=== PATIENT | female | born 1970 | race Caucasian/White ===

== ENCOUNTER 2021-10-25 19:00 | Outpatient (CLI) | payer BC, SELFPAY ==
--- NOTE | 2021-11-04 09:00 | W.PM.SLEEP ---
Sleep Study Details Details Interpreting Provider: Artur Naranjo MD Date of Sleep Study: 10/25/21 Sleep Study Details: STUDY TYPE:? Home sleep study ? BMI:? Not recorded ORDERING PROVIDER:? Marco Antonio INDICATION:? Concerns about sleep apnea ? SLEEP SUMMARY:? Monitor time 485.5 minutes RESPIRATORY SUMMARY:? AHI is 10.9. Supine AHI 15.1 Right lateral AHI 2.8 Low oxygen was 84 3.4% of the study oxygenation was less than 90% Snore summary 41.2% CARDIAC:? 52-105, mean 72.1 bpm IMPRESSION:? Mild obstructive sleep apnea all in the supine position. RECOMMENDATION: Treatment options include AutoSet CPAP at a pressure of 4-17, positional therapy, dental appliance, weight loss and/or airway expansion surgery.
== END 2021-10-25 19:01 | disposition home or self-care (01) ==
LOC: SLEEP 10-31 13:02
PROVIDERS: PCP Physician Assistant Medical; Visit Provider Otolaryngology
DX: G47.33 Obstructive sleep apnea (adult) (pediatric) (principal)
CPT/HCPCS: 95806

== ENCOUNTER 2021-11-10 10:46 | Outpatient (CLI) | payer BC, SELFPAY ==
--- NOTE | 2021-11-10 11:00 | CT_ITS ---
Final Report Patient: DAKOTA MAST Facility:?[facility] Patient ID:?[id number] Site Patient ID:?[id number]. Site :?[id number] Study:?CT Sinus WITHOUT-11/10/2021 11:11:34 AM Ordering Physician:?Alexa Siddiqui Final Report: INDICATION: Sinusitis. TECHNIQUE: CT sinus without contrast. COMPARISON: None. FINDINGS: Paranasal sinuses: Minimal ethmoid sinus mucosal thickening. Small mucous retention cysts/polyps in bilateral maxillary sinuses. Otherwise the paranasal sinuses are clear. No air-fluid levels. The ostiomeatal units are patent. The fovea ethmoidalis and orbital bueno are intact. The nasal septum is midline and intact. Mild degenerative change in the bilateral temporomandibular joints. Mild asymmetric hypertrophy of the right nasal turbinates compared to the left. Amy bullosa with pneumatization of the left middle turbinate. Orbits and globes: Unremarkable. Visualized intracranial contents: Unremarkable. Incomplete fusion of the posterior ring of C1. Soft tissues: Unremarkable. IMPRESSION: Minimal ethmoid sinus mucosal thickening. No air-fluid levels to suggest acute sinusitis. Small bilateral maxillary sinus polyps or mucous retention cysts. Mild asymmetric hypertrophy of the right nasal turbinates compared to the left. Pneumatization of the left middle turbinate. Please note that all CT scans at this facility use dose modulation, iterative reconstruction, and/or weight-based dosing when appropriate to reduce radiation dose to as low as reasonably achievable. Dictated by Henrique Canales MD @ 11/10/2021 11:26:19 AM (Electronic Signature)
== END 2021-11-10 10:47 | disposition home or self-care (01) ==
LOC: CT 10:46
PROVIDERS: PCP Physician Assistant Medical; Visit Provider Otolaryngology
DX: J32.9 Chronic sinusitis, unspecified (principal)
CPT/HCPCS: 70486

== ENCOUNTER 2022-04-14 14:40 | Outpatient (CLI) | payer BC, SELFPAY ==
--- NOTE | 2022-04-14 15:00 | CRLHL7_ITS ---
For Patients: As a result of the Century Cures Act, medical imaging exams and procedure reports are released immediately into your electronic medical record. You may view this report before your referring provider. If you have questions, please contact your health care provider. INDICATION: LEFT LOWER QUADRANT ABDOMINAL PAIN COMPARISON: none TECHNIQUE: 2D mobley scale and color Doppler images were acquired of the pelvis using a transabdominal and transvaginal approach. FINDINGS: The uterus is absent. The right ovary measures 2.7 x 1.9 x 1.3 cm in size and the left ovary is not visualized. The right ovary demonstrates normal arterial and venous blood flow on color Doppler analysis. There are no suspicious fluid collections within the cul-de-sac. IMPRESSION: Nonvisualization of the left ovary. No adnexal mass or free fluid. Dictated by Michele Lomas MD @ 04/15/2022 12:53:27 PM (Electronically Signed)
--- NOTE | 2022-04-14 16:00 | CRLHL7_ITS ---
For Patients: As a result of the Cures Act, medical imaging exams and procedure reports are released immediately into your electronic medical record. You may view this report before your referring provider. If you have questions, please contact your health care provider. INDICATION: Evaluate for stenosis TECHNIQUE: The carotid circulations and the vertebral arteries in the neck were examined with mobley-scale ultrasound, color-flow and Doppler spectral analysis. Degrees of stenosis were determined using SRU 2002 Consensus Panel Criteria. COMPARISON: None FINDINGS: Multiple sonographic images with grayscale, color Doppler and spectral Doppler analysis were obtained demonstrate visualized atherosclerotic plaque in the carotid arteries bilaterally. Velocities are within normal limits bilaterally. The right ICA/CCA ratio is 0.9 and the left ICA/CCA ratio is 0.0. Spectral waveforms are normal. Both vertebral arteries are antegrade. IMPRESSION: Estimated stenosis in the right internal carotid artery is extent% by NASCET criteria. Estimated stenosis in the left internal carotid artery is less than 5th % by NASCET criteria. Dictated by Michele Wan MD @ 04/14/2022 7:09:29 PM ----- ADDENDUM ----- The impression should state: The right and left internal carotid arteries demonstrate 0-50 percent stenosis. Dictated by Michele Wan MD @ Apr 15 2022 12:12PM ----- ADDENDUM ----- Addendum: Impression should state estimated stenosis in the internal carotid arteries bilaterally is less than 50 percent. In the findings, the left ICA/CCA ratio is 1.0. Dictated by Michele Lomas MD @ Jan 14 2023 1:47PM (Electronically Signed)
== END 2022-04-14 14:41 | disposition home or self-care (01) ==
LOC: US 14:40
PROVIDERS: PCP Physician Assistant Medical; Visit Provider Physician Assistant Medical
DX: R10.32 Left lower quadrant pain (principal); G44.84 Primary exertional headache
CPT/HCPCS: 76830; 76856; 93880; 93976

== ENCOUNTER 2022-04-17 10:30 | Day surgery (SDC) | payer BC, SELFPAY ==
[2022-04-17] VITALS (12 sets, daily range): BP systolic 103–136; BP diastolic 66–84; PULSE 58–86; RESP 12–20; TEMP 36.6–37.2; O2SAT 93–97; BMI 38.5
[2022-04-17] MEDS: SODIUM CHLORIDE 0.9 % (FLUSH) 10 ML SYRINGE IVF (11:00)
[2022-04-17] MEDS: LACTATED RINGERS 1000 ML 1,000 ML 100 ML IV (11:00)
--- NOTE | 2022-04-17 11:08 | SUR.PREOP ---
Visualized patients home covid test, results negative.
--- NOTE | 2022-04-17 11:14 | W.ANESCHARGE ---
Anesthesia Charges Start Date/Time Anesthesia Start Date: 04/17/22 Anesthesia Start Time: 11:58 Stop Date/Time Anesthesia Stop Date: 04/17/22 Anesthesia Stop Time: 12:35 Summary Emergency: No
[2022-04-17] MEDS: OXYMETAZOLINE 0.05% NASAL SPRAY 2 SPRAY NOSTRIL-B (11:26)
[2022-04-17] MEDS: COCAINE HCL 4 % 4 ML SOLUTION NOSTRIL-B (12:12)
[2022-04-17] MEDS: BUPIVACAINE 0.5 %/EPI 1:200K 30 ML INJECTION (12:12)
[2022-04-17] MEDS: AYR SALINE NASAL GEL 1 APPLIC NOSTRIL-B (12:21)
[2022-04-17] MEDS: MUPIROCIN 1 GM PACKET 1 APPLIC TOPICAL (12:21)
--- NOTE | 2022-04-17 12:24 | P.ENTPROC_ITS ---
Procedure Note Date of procedure: 04/17/22 Procedure: Preoperative diagnosis nasal septal deviation, inferior turbinate hypertrophy, left middle turbinate freya bullosa Postoperative diagnosis same plus polypoid change anterior head right middle turbinate, synechiae between inferior turbinate and septum on right inferior nasal airway Procedure nasal septoplasty, submucous partial resection inferior turbinates, endoscopic partial resection left middle turbinate freya bullosa, endoscopic right nasal polypectomy, lysis of right nasal synechiae Under general endotracheal anesthesia the patient was prepped and draped in usual fashion the nose injected and decongested. This point was apparent there was polypoid change at the anterior head of the right middle turbinate and a synechiae between right inferior turbinate and nasal septum. The synechia was lysed with a 15 blade. The polyp was removed with an ethmoid forceps leaving mucosa covering the majority of the right middle turbinate. Incision was made in the septal mucosa and was elevated on the right side in the area of compression of the right middle turbinate. The cut was made into the bone with a Houston dissector and the bone was fractured to the midline. A stab incision was made in the anterior head of the right inferior turbinate a tunnel created with a Adele dissector. Conservative anterior submucous resection was performed with Davis forceps. The Coblation was used for hemostasis and to cauterize intramurally along the inferior 10%. This was repeated on the left side in identical fashion. The left middle turbinate freya was identified and incised along the mid lateral aspect. A tunnel was created with a Houston dissector and the bone was infractured. The remainder of the turbinate was then crushed with the Vance forceps. Merocel packing coated in Bactroban was placed in the middle meatus on each side. The patient was extubated in the operating room taken recovery in satisfactory condition. Blood loss during procedure was less than 20 mL. There were no complications. Surgeon: Artur Narajno MD
--- NOTE | 2022-04-17 12:40 | W.ANESCHARGE ---
Anesthesia Charges Start Date/Time Anesthesia Start Date: 04/17/22 Anesthesia Start Time: 11:58 Stop Date/Time Anesthesia Stop Date: 04/17/22 Anesthesia Stop Time: 12:35 Summary Emergency: No
--- NOTE | 2022-04-17 13:06 | SUR.PHASEI ---
patient met discharge criteria per anethesia
[2022-04-17] MEDS: IBUPROFEN 200 MG TABLET PO (14:08)
[2022-04-17] MEDS: ACETAMINOPHEN 325 MG TABLET PO (14:09)
--- NOTE | 2022-04-17 14:54 | SUR.PHASEII ---
Pt verbalized readiness to be discharged. Pt verbalized understanding of discharge instructions. Pt tolerated water, sprite zero and peanut butter toast. Nasal dressing changed.
== END 2022-04-17 14:55 | disposition home or self-care (01) ==
PROVIDERS: PCP Physician Assistant Medical; Visit Provider Otolaryngology
PROC: (CPT 31231; principal; 2022-04-17 12:00)
DX: J34.2 Deviated nasal septum (principal); J34.3 Hypertrophy of nasal turbinates; J33.8 Other polyp of sinus
CPT/HCPCS: 30520; 30140; 31240; 31237; 00160; 88304; A9270; J0330; J1100; J2250; J2405; J2704; J3010; J3490; J7120

== ENCOUNTER 2022-07-10 07:00 | Outpatient (CLI) | payer BC, SELFPAY ==
--- NOTE | 2022-07-10 07:15 | CRLHL7_ITS ---
For Patients: As a result of the Century Cures Act, medical imaging exams and procedure reports are released immediately into your electronic medical record. You may view this report before your referring provider. If you have questions, please contact your health care provider. Indication: Vertigo. Headaches. Technique: Multiplanar, multisequence MRI of the brain was performed without intravenous contrast. Comparison: None relevant available. Findings: The corpus callosum, clivus and craniocervical junction appear preserved. No cerebellar tonsillar ectopia. Partially empty sella morphology. There is no restricted diffusion. No intracranial hemorrhage. The ventricles are proportionate to the cerebral sulci. The 4th ventricle appears midline. The basal cisterns appear patent. No abnormal extra-axial fluid collection identified. Few scattered nonspecific T2 FLAIR hyperintense white matter foci. There is no intracranial mass, abnormal mass-effect or midline shift identified. Both globes are preserved. Minimal paranasal sinus mucosal disease. Trace right mastoid effusion. Impression: 1. No acute intracranial process. 2. Partially empty sella morphology. 3. Few scattered nonspecific T2 FLAIR hyperintense white matter foci. Differential considerations include sequela of migraine headaches or chronic ischemic microvascular disease. Dictated by Shady Guerrier MD @ 07/10/2022 9:21:44 AM (Electronically Signed)
--- NOTE | 2022-07-10 08:00 | CRLHL7_ITS ---
For Patients: As a result of the Century Cures Act, medical imaging exams and procedure reports are released immediately into your electronic medical record. You may view this report before your referring provider. If you have questions, please contact your health care provider. CT ANGIOGRAM HEAD DATE: 07/10/2022 CLINICAL HISTORY: Patient with exertional headaches. TECHNIQUE: Standard helical CT image acquisition through the intracranial circulation following intravenous administration of contrast material with bolus tracking. Multiplanar reconstructed images were performed and interpreted. COMPARISON: None. FINDINGS: There is either a 1.5mm infundibulum or aneurysm in the region of the right posterior communicating artery. There is no large vessel occlusion. The right internal carotid artery is normal. The right middle cerebral artery and its branches are normal. The right anterior cerebral artery and its branches are normal. The left internal carotid artery is normal. The left middle cerebral artery and its branches are normal. The left anterior cerebral artery and its branches are normal. The anterior communicating artery is well visualized and appears normal. The right vertebral artery and PICA are normal. The left vertebral artery and PICA are normal. The vertebral artery is dominant. The basilar artery is patent and appears normal. The right posterior cerebral artery is normal. The left posterior cerebral artery is normal. The visualized venous structures are patent. IMPRESSION: Either a 1.5mm infundibulum or aneurysm in the region of the right posterior communicating artery. Given the history of exertional headaches, definitive evaluation with a catheter angiogram is recommended. Arrangements for this to be performed by [facility]`s Neurointerventional team can be made by calling . Amairani Benavides M.D. Neurointerventional Radiologist [facility] Pager: Office/Appointments: Answering Service: [facility] Transfer Center: [email or web address] Please note that all CT scans at this facility use dose modulation, iterative reconstruction, and/or weight-based dosing when appropriate to reduce radiation dose to as low as reasonably achievable. Dictated by: Amairani Benavides MD @ 07/10/2022 09:40:31 (Electronically Signed)
--- NOTE | 2022-07-10 08:30 | CRLHL7_ITS ---
For Patients: As a result of the Century Cures Act, medical imaging exams and procedure reports are released immediately into your electronic medical record. You may view this report before your referring provider. If you have questions, please contact your health care provider. CT ANGIOGRAM NECK DATE: 07/10/2022 CLINICAL HISTORY: Patient with exertional headaches and neck pain. TECHNIQUE: Standard helical CT image acquisition of the neck up to the skull base after bolus intravenous contrast enhancement. Multiplanar reconstructed images performed on a separate workstation. COMPARISON: MRI same day. FINDINGS: The origins of the great vessels from the aortic arch are patent. The origin of the right vertebral artery is patent. The origin of the left vertebral artery is patent. The common carotid arteries are patent. There is plaque without stenosis at the origin of the right internal carotid artery. There is plaque without stenosis at the origin of the left internal carotid artery. The rest of the cervical segments of the internal carotid arteries are patent up to the skull base. The vertebral arteries are codominant. The cervical segments of the vertebral arteries are patent up to the skull base. The visualized lung apices are unremarkable. The thyroid gland is unremarkable. The soft tissues of the neck are unremarkable. There are degenerative changes in the cervical spine. IMPRESSION: Normal CT angiogram of the neck. Please note that all CT scans at this facility use dose modulation, iterative reconstruction, and/or weight-based dosing when appropriate to reduce radiation dose to as low as reasonably achievable. Dictated by: Amairani Benavides MD @ 07/10/2022 09:34:43 (Electronically Signed)
== END 2022-07-10 07:01 | disposition home or self-care (01) ==
LOC: MRI 07:03
PROVIDERS: PCP Physician Assistant Medical; Visit Provider Physician Assistant Medical
DX: G44.84 Primary exertional headache (principal); M54.2 Cervicalgia; R42 Dizziness and giddiness
CPT/HCPCS: 70496; 70498; 70551; Q9967

== ENCOUNTER 2023-02-01 10:46 | Outpatient (CLI) | payer BC, SELFPAY ==
--- NOTE | 2023-02-01 11:00 | CRLHL7_ITS ---
For Patients: As a result of the Century Cures Act, medical imaging exams and procedure reports are released immediately into your electronic medical record. You may view this report before your referring provider. If you have questions, please contact your health care provider. INDICATION: Nasal congestion. TECHNIQUE: Noncontrast CT images acquired through the paranasal sinuses. COMPARISON: CT sinus 11/10/2021. FINDINGS: No air-fluid levels to suggest acute sinusitis. Stable small maxillary sinus retention cysts. Mild right and minimal left maxillary sinus mucosal thickening. The right ethmoid infundibulum is partially opacified. The left ethmoid infundibulum is widely patent. Minimal mucosal thickening in the frontal recesses. The frontal sinuses are otherwise clear. Minimal mucosal thickening in the ethmoid air cells. Minimal mucosal thickening in the sphenoid sinuses. The sphenoethmoidal recesses are clear. Slight sinusoidal nasal septal deviation. No nasal cavity masses. The mastoid air cells are clear. [id number] left temporomandibular joint degenerative changes. IMPRESSION: 1. Mild right maxillary sinus mucosal thickening has worsened compared to the prior CT. Otherwise, no significant change. No air-fluid levels to suggest acute sinusitis. 2. Stable small maxillary sinus retention cysts or polyps. Please note that all CT scans at this facility use dose modulation, iterative reconstruction, and/or weight-based dosing when appropriate to reduce radiation dose to as low as reasonably achievable. Dictated by Chandrakant Hines MD @ 02/01/2023 3:41:38 PM (Electronically Signed)
== END 2023-02-01 10:47 | disposition home or self-care (01) ==
PROVIDERS: PCP Physician Assistant Medical; Visit Provider Otolaryngology
DX: R09.81 Nasal congestion (principal); J32.0 Chronic maxillary sinusitis
CPT/HCPCS: 70486

== ENCOUNTER 2023-06-09 14:46 | Outpatient (CLI) | payer BC, SELFPAY | END 2023-06-09 14:47 | disposition home or self-care (01) | LOC: NFLDREF 06-10 07:16 | PROVIDERS: PCP Physician Assistant Medical; Referring Provider Physician Assistant Medical; Visit Provider Physician Assistant Medical | DX: E78.5 Hyperlipidemia, unspecified (principal); I10 Essential (primary) hypertension; R73.03 Prediabetes; E66.01 Morbid (severe) obesity due to excess calories | CPT/HCPCS: 80053; 80061; 84443 ==

== ENCOUNTER 2023-06-11 09:41 | Day surgery (SDC) | payer BC, SELFPAY ==
[2023-06-11] VITALS (12 sets, daily range): BP systolic 104–117; BP diastolic 67–86; PULSE 60–75; RESP 13–20; TEMP 36.1–36.6; O2SAT 92–97; BMI 42.7
[2023-06-11] MEDS: LACTATED RINGERS 1000 ML 1,000 ML 100 ML IV (10:00)
[2023-06-11] MEDS: SODIUM CHLORIDE 0.9 % (FLUSH) 10 ML SYRINGE IVF (10:00)
[2023-06-11] MEDS: OXYMETAZOLINE 0.05% NASAL SPRAY 2 SPRAY NOSTRIL-B (10:05)
[2023-06-11] MEDS: SCOPOLAMINE 1 MG/3 DAY PATCH 1 PATCH TRANSDERMA (10:58)
[2023-06-11] MEDS: BUPIVACAINE 0.5%/EPINEPHRINE 0.9 MG (30.9 ML) INJECTION (12:45)
[2023-06-11] MEDS: COCAINE HCL 4 % 4 ML SOLUTION NOSTRIL-B (12:45)
[2023-06-11] MEDS: MUPIROCIN 1 GM PACKET 1 APPLIC TOPICAL (12:58)
--- NOTE | 2023-06-11 13:08 | W.ANESCHARGE ---
Anesthesia Charges Start Date/Time Anesthesia Start Date: 06/11/23 Anesthesia Start Time: 12:24 Stop Date/Time Anesthesia Stop Date: 06/11/23 Anesthesia Stop Time: 13:08
--- NOTE | 2023-06-11 13:30 | W.ANESCHARGE ---
Anesthesia Charges Start Date/Time Anesthesia Start Date: 06/11/23 Anesthesia Start Time: 12:24 Stop Date/Time Anesthesia Stop Date: 06/11/23 Anesthesia Stop Time: 13:08
--- NOTE | 2023-06-11 13:41 | SUR.PHASEI ---
patient met discharge criteria per anesthesia
--- NOTE | 2023-06-11 13:53 | W.PM.ENTPROC ---
Procedure Note Date of procedure: 06/11/23 Procedure: Preoperative diagnosis recurrent and chronic right maxillary sinusitis with occlusion of maxillary sinus outflow tract on the right, nasal headache, septal compression right middle turbinate Postoperative diagnosis same Procedure endoscopic right maxillary antrostomy utilizing image guidance, limited nasal septoplasty Under general trach anesthesia patient was prepped and draped in usual fashion. The nose was decongested with cocaine pledgets and injected. The image guidance system was registered to excellent accuracy at 1.1 mm. The with the aid of a 0 degree scope the inferior 4th of the uncinate process was taken down exposing natural ostium to right maxillary sinus. This was occluded by polypoid tissue which was removed and a 9 mm antrostomy created. And is sitting was made in the septal mucosa anterior to the right superior deflection. The mucosa was elevated on either side of the deflection. A turbinate scissors was used to cut above and below and the deflected portion of septal bone removed. A piece of this was trimmed returned to intraseptal space in the flap laid back down. A Merocel pack coated in Bactroban was placed on each side of the nose to hold the septum stable. The patient procedure well was taken recovery satisfactory to wylie blood loss less than 10 mL. Surgeon: Artur Naranjo MD
[2023-06-11] MEDS: IBUPROFEN 200 MG TABLET PO (14:21)
== END 2023-06-11 14:35 | disposition home or self-care (01) ==
PROVIDERS: PCP Physician Assistant Medical; Visit Provider Otolaryngology
PROC: (CPT 31231; principal; 2023-06-11 11:00)
DX: J32.0 Chronic maxillary sinusitis (principal); R51.9 Headache, unspecified; J34.2 Deviated nasal septum
CPT/HCPCS: 31267; 30520; 00160; 82962; 88305; A9270; J0330; J1100; J2250; J2405; J2704; J3010; J7120

== ENCOUNTER 2023-06-25 20:34 | Emergency (ER) | payer BC, SELFPAY ==
[2023-06-25 20:40] VITALS: BP 113/77; PULSE 103; RESP 18; TEMP 36.9; O2SAT 95
--- NOTE | 2023-06-25 21:05 | XR_ITS ---
[facility] Patient ID:?[id number] Site Patient ID:?[id number]. Site :?[id number] Study:?XRay-Chest 2V-06/25/2023 9:22:34 PM Ordering Physician:TREY Final Report: INDICATION: Cough, feels like pill is stuck in throat TECHNIQUE: Chest radiograph 2 views COMPARISON: None FINDINGS: Mediastinum: The mediastinum is normal in appearance. The heart silhouette is normal in size and morphology. Lung: Both lungs are unremarkable in appearance. No sign of pleural effusion seen. No pneumothorax is identified. Bone and Soft tissue: Unremarkable for age. IMPRESSION: 1. No acute cardiopulmonary disease is seen. Dictated by: Erik Jean Baptiste MD @ 06/25/2023 21:34:58 Signed by:Marizol Jean Baptiste MD @06/25/2023 9:34:58 PM (Electronic Signature)
--- NOTE | 2023-06-25 23:02 | ED_ITS ---
HPI - General Adult General Date Seen: 06/25/23 Chief complaint: Ear/Nose/Throat Problem Stated complaint: Swallowed Contrave pill last night-stuck in throat Time Seen by Provider: 06/25/23 20:52 Source: patient, RN notes reviewed and old records reviewed Mode of arrival: ambulatory Limitations: no limitations History of Present Illness HPI narrative: Patient is a 52-year-old woman who says that last night she took her 1st dose of a new medication, Contrave. She says that she was very nervous about taking it because 1 of the side effects is dizziness, she already has problems with diz ziness when she gets dizzy she gets very anxious. She says she took the pill and felt like it got stuck long-term down her esophagus, and she has had that sensation ever since then. She has been clearing her throat and intentionally coughing quite a bit trying to clear this sensation, and now her voice is somewhat hoarse, but she is clear that she did not aspirate the pill last night. She says that she swallowed it without difficulty but then it felt like it got stuck. She has pain in her upper chest which she says seems to go out to both sides, it is a little bit difficult to breathe although it is not painful to breathe. She has not otherwise had fevers or cough. She has been eating and drinking without difficulty but has been afraid to take any further medications today. She has not had any vomiting. Related Data Home Medications Medication Instructions Recorded Confirmed epinephrine 0.3 mg/0.3 mL 0.3 mg IM .As Needed PRN 11/26/21 06/25/23 injection, auto-injector hydroxyzine HCl 25 mg tablet 25 mg PO .Every 4-8 Hours 11/26/21 06/15/23 Previous Rx's Medication Instructions Recorded fluoxetine 40 mg capsule 40 mg PO DAILY #90 caps 01/12/23 propranolol 60 mg capsule,24 60 mg PO QDAY #90 caps 02/01/23 hr,extended release hydrochlorothiazide 25 mg tablet 25 mg PO QAM #90 tabs 05/18/23 lisinopril 40 mg tablet 40 mg PO DAILY #90 tabs 05/18/23 metformin 500 mg tablet,extended 2,000 mg (4 x 500 mg) PO QDAY #360 06/09/23 release 24 hr tabs naltrexone 8 mg-bupropion 90 mg 1 tab PO ONCE #90 tabs 06/09/23 tablet,extended release (Contrave) rosuvastatin 20 mg tablet 20 mg PO QDAY #90 tabs 06/10/23 cephalexin 250 mg capsule 250 mg PO TID #18 caps 06/11/23 ondansetron 4 mg disintegrating 4 mg PO Q8H #10 tabs 06/11/23 tablet sucralfate 100 mg/mL oral 10 ml PO QID PRN #200 mL 06/25/23 suspension (Carafate) Allergies Allergy/AdvReac Type Severity Reaction Status Date / Time bee venom protein (honey bee) Allergy Intermediate Verified 06/15/23 09:11 Review of Systems Status of ROS: Reports: 6 or more systems reviewed and unremarkable except as noted in History and below [facility] Medical History Vertigo ?R42 - Dizziness and giddiness (ICD-10) Abnormal brain MRI ?R90.89 - Other abnormal findings on diagnostic imaging of central nervous system (ICD-10) Fatigue ?R53.83 - Other fatigue (ICD-10) Exertional headache ?G44.84 - Primary exertional headache (ICD-10) Restless leg syndrome ?G25.81 - Restless legs syndrome (ICD-10) Hematuria (05/23/09) ?R31.9 - Hematuria, unspecified (ICD-10) Depression (05/15/09) ?F32.A - Depression, unspecified (ICD-10) Anxiety (05/15/09) ?F41.9 - Anxiety disorder, unspecified (ICD-10) Superficial thrombophlebitis ?I80.9 - Phlebitis and thrombophlebitis of unspecified site (ICD-10) Complex atypical endometrial hyperplasia ?N85.02 - Endometrial intraepithelial neoplasia [EIN] (ICD-10) History of uterine cancer ?Z85.42 - Personal history of malignant neoplasm of other parts of uterus (ICD-10) Suprapubic pain ?R10.2 - Pelvic and perineal pain (ICD-10) Impaired fasting glucose ?R73.01 - Impaired fasting glucose (ICD-10) Surgical History Hx of sinus surgery (~04/2023) ?Z98.890 - Other specified postprocedural states (ICD-10) Status post surgical removal of both fallopian tubes ?Z90.79 - Acquired absence of other genital organ(s) (ICD-10) Status post hysterectomy (~2017) ?Z90.710 - Acquired absence of both cervix and uterus (ICD-10) History of exploratory laparotomy ?Z98.890 - Other specified postprocedural states (ICD-10) Family History Father Family history of varicose veins Other Diabetes Heart disease High blood pressure Social History Narrative: Smoker, 1/2 ppd Smoking Status: Former smoker Do you use any of these nicotine containing products: Vaping Products Smokeless tobacco user details: equivalent to 3 cigarettes daily How often do you have a drink containing alcohol: never How often do you have six or more drinks on one occasion: Never AUDIT-C Alcohol total score: 0 Non-prescribed substance use: denies use Caffeine: Yes Little interest or pleasure in doing things: several days Feeling down, depressed, or hopeless: several days Are you using contraception or practicing any form of control: No Exam Narrative: Exam Narrative: Vital signs as noted above. In general, an alert, well-appearing patient. Head: Normocephalic, atraumatic. Eyes: Pupils are equal reactive. Extraocular movements are full. Conjunctivae are normal. ENT: Mucous membranes are moist. Throat is normal. No edema, airways clear. Neck: Supple without lymphadenopathy. No stridor. Heart: Regular rate and rhythm. No murmur or rub. Lungs: Clear bilaterally. No increased work of breathing, crackles or wheezes. Abdomen: Soft and nontender. No organomegaly. Extremities: Well perfused. No edema. No calf tenderness. Pulses intact. Neurologic: Patient is alert and oriented to person and place. Speech is fluent. Face is symmetric. Moves all extremities equally. Affect: Anxious. Skin: Warm and dry. Well perfused. Const: Vital Signs, click to edit/add: Vital Signs - 24 hr 06/25/23 20:40 Temperature 98.5 F Pulse Rate [Left P ulse Oximeter] 103 H Respiratory Rate 18 Blood Pressure [Le ft Upper Arm] 113/77 Pulse Oximetry 95 Oxygen Delivery Me thod Room Air Documenting provider has reviewed patient's vital signs: yes Course Course ED Course: I did do a chest x-ray, there is no evidence of mediastinal air or pneumothorax. Final radiology read is negative. Discussed with her that any direct visualization I would be able to do here would be essentially in the posterior throat, above the level of the vocal cords. She has this sensation in her upper chest which I would not be able to evaluate here with direct visualization. She does not present with a history of aspiration, airway is preserved. Discussed with her that I suspect she may have just a residual effects of this with some irritation of the esophagus causing her symptoms. Recommended a trial of Carafate, she actually has an appointment with her primary doctor in 2 days on Wednesday and then with ENT the next day for unrelated reasons. So certainly if she is not improving over the weekend further evaluation could be entertained at her follow-up visits. For new symptoms such as severe pain, fevers, vomiting, return to the emergency department. Vital Signs Vital signs: Initial Vital Signs Temperature 98.5 F 06/25/23 20:40 Temperature Source Temporal Artery Scan 06/25/23 20:40 Pulse Rate 103 H 06/25/23 20:40 Pulse Rhythm Regular 06/25/23 20:40 Pulse Strength 3+ Normal 06/25/23 20:40 Respiratory Rate 18 06/25/23 20:40 Blood Pressure 113/77 06/25/23 20:40 Blood Pressure Mean 89 06/25/23 20:40 Blood Pressure Position Sitting 06/25/23 20:40 Pulse Oximetry 95 06/25/23 20:40 Oxygen Delivery Method Room Air 06/25/23 20:40 Vital Signs Temperature 98.5 F 06/25/23 20:40 Pulse Rate 103 H 06/25/23 20:40 Respiratory Rate 18 06/25/23 20:40 Blood Pressure 113/77 06/25/23 20:40 Pulse Oximetry 95 06/25/23 20:40 Oxygen Delivery Method Room Air 06/25/23 20:40 Temperature 98.5 F 06/25/23 20:40 Pulse Rate 103 H 06/25/23 20:40 Respiratory Rate 18 06/25/23 20:40 Blood Pressure 113/77 06/25/23 20:40 Pulse Oximetry 95 06/25/23 20:40 Oxygen Delivery Method Room Air 06/25/23 20:40 Discharge Plan Discharge Clinical Impression: Chest pain Patient Disposition: Home, Self-Care Condition: Stable Additional Instructions: Carafate, you can pick this up tomorrow at the pharmacy. This may help symptomatically with any irritation of your esophagus. I would expect that these symptoms will gradually improve over the weekend, but discussed with primary care and/or ENT on Wednesday/Wednesday if persistent. For severe pain, high fevers, significant difficulty breathing or other acute worsening return to the emergency department. Activity Level: No Restrictions Discharge Diet: Regular Prescriptions: New sucralfate [Carafate] 100 mg/mL suspension 10 ml PO QID PRNQty: 200 3RF No Action propranolol 60 mg capsule,extended release 24 hr 60 mg PO QDAY Qty: 90 1RF Contrave 8-90 mg tablet extended release 1 tab PO ONCE Qty: 90 0RF Rx Instructions: Once daily for weight management metformin 500 mg tablet extended release 24 hr 2,000 mg PO QDAY Qty: 360 3RF Rx Instructions: take 4 tablets once daily hydroxyzine HCl 25 mg tablet 25 mg PO .Every 4-8 Hours Rx Instructions: 1 to 2 capsules every 4 to 8 hours as needed for anxiety epinephrine 0.3 mg/0.3 mL auto-injector 0.3 mg IM .As Needed PRN cephalexin 250 mg capsule 250 mg PO TID Qty: 18 0RF ondansetron 4 mg tablet,disintegrating 4 mg PO Q8H Qty: 10 0RF fluoxetine 40 mg capsule 40 mg PO DAILY Qty: 90 1RF lisinopril 40 mg tablet 40 mg PO DAILY Qty: 90 0RF hydrochlorothiazide 25 mg tablet 25 mg PO QAM Qty: 90 0RF rosuvastatin 20 mg tablet 20 mg PO QDAY Qty: 90 0RF Rx Instructions: once daily for high cholesterol recheck labs in 3 months Follow Up/Referrals: Ricarda Suresh PA-C [Primary Care Provider] - Stand Alone Forms: [facility] Info Instructions
== END 2023-06-25 22:04 | disposition home or self-care (01) ==
PROVIDERS: Emergency Provider Emergency Medicine; PCP Physician Assistant Medical
DX: R07.9 Chest pain, unspecified (principal)
CPT/HCPCS: 71046; 99283; 99284

== ENCOUNTER 2024-08-15 13:55 | Outpatient (CLI) | payer BC, SELFPAY | END 2024-08-15 13:56 | disposition home or self-care (01) | PROVIDERS: PCP Physician Assistant Medical; Visit Provider Otolaryngology | DX: R26.89 Other abnormalities of gait and mobility (principal); R25.1 Tremor, unspecified | CPT/HCPCS: 82607; 82746; 84443; 86038; 86039; 86431; 86618 ==

== ENCOUNTER 2024-08-22 14:46 | Outpatient (CLI) | payer BC, SELFPAY ==
--- NOTE | 2024-08-22 15:00 | CRLHL7_ITS ---
For Patients: As a result of the Century Cures Act, medical imaging exams and procedure reports are released immediately into your electronic medical record. You may view this report before your referring provider. If you have questions, please contact your health care provider. Indication: Tinnitus. Sensitive hearing. Technique: CT of the temporal bones performed without IV contrast. Comparison: MR brain 07/10/2022. Findings: RIGHT: The external auditory canal is patent. The tympanic membrane is not thickened. The mesotympanum is well aerated. The scutum is sharp. Ossicles are intact without evidence of erosion. The epitympanum and mastoid air cells appear clear. The inner ear structures including the cochlea, semicircular canals, vestibule and vestibular aqueduct appear unremarkable. Osseous IAC is intact. The path of the facial nerve canal is preserved. LEFT: The external auditory canal is patent. The tympanic membrane is not thickened. The mesotympanum is well aerated. The scutum is sharp. Ossicles are intact without evidence of erosion. The epitympanum and mastoid air cells appear clear. The inner ear structures including the cochlea, semicircular canals, vestibule and vestibular aqueduct appear unremarkable. Osseous IAC is intact. The path of the facial nerve canal is preserved. OTHER: The visualized portions of the brain, orbits and upper soft tissue neck are grossly negative. Impression: Unremarkable CT of the temporal bones. Please note that all CT scans at this facility use dose modulation, iterative reconstruction, and/or weight-based dosing when appropriate to reduce radiation dose to as low as reasonably achievable. Dictated by Shady Guerrier MD @ 08/23/2024 1:21:53 PM (Electronically Signed)
== END 2024-08-22 14:47 | disposition home or self-care (01) ==
LOC: CT 14:47
PROVIDERS: PCP Physician Assistant Medical; Visit Provider Otolaryngology
DX: H93.19 Tinnitus, unspecified ear (principal); R26.89 Other abnormalities of gait and mobility
CPT/HCPCS: 70480